=== PATIENT | male | born 2000 | race Caucasian/White ===

== ENCOUNTER 2025-01-06 11:46 | Emergency (ER) | payer OTHER | END 2025-01-06 12:45 | disposition home or self-care (01) | LOC: JD.ED 11:46 | DX: S46.912A Strain of unspecified muscle, fascia and tendon at shoulder and upper arm level, left arm, initial encounter (principal); X50.0XXA Overexertion from strenuous movement or load, initial encounter; V49.49XA Driver injured in collision with other motor vehicles in traffic accident, initial encounter; Y93.89 Activity, other specified | CPT/HCPCS: 73030; 99284; A9270 ==